=== PATIENT | female | born 1995 | race African-American/Black ===

== ENCOUNTER 2020-08-12 00:27 | Emergency (ER) | payer BC ==
[2020-08-12] MEDS ORDERED: Boostrix 0.5 ML (Tdap) VIAL ONE (01:23)
[2020-08-12] MEDS ORDERED: Ondansetron ODT 8 MG TAB ONE (01:23)
[2020-08-12] MEDS ORDERED: Lidocaine 2% MPF 10 ML AMP (For Epidural Use) ONE (01:33)
[2020-08-12] MEDS ORDERED: Lidocaine 1% PF 5 ML VIAL ONE ×2 (01:33→01:37)
[2020-08-12] MEDS ORDERED: Triple Antibiotic Oint 1 GM Packet ONE (02:38)
[2020-08-12] MEDS ORDERED: Ibuprofen 200 MG TAB ONE (03:05)
--- NOTE | 2020-08-12 08:52 | RAD ---
LEFT HAND 3 VIEWS: Date: 08/12/2020 HISTORY: Injury. Left hand went through glass coffee table. Bleeding controlled. Left hand pain. Concern for f oreign body. FINDINGS/IMPRESSION: No bony abnormality is seen. No radiopaque foreign body is identified. POS: [facility]
== END 2020-08-12 03:13 | disposition home or self-care (01) ==
LOC: ERS 00:27
DX: S61.412A Laceration without foreign body of left hand, initial encounter (principal); W25.XXXA Contact with sharp glass, initial encounter
CPT/HCPCS: 12002; 90715; J2001; Q0162

== ENCOUNTER 2020-12-14 21:57 | Emergency (ER) | payer BC | END 2020-12-14 22:42 | disposition home or self-care (01) | LOC: ERS 21:57 | DX: S93.401A Sprain of unspecified ligament of right ankle, initial encounter (principal); X50.1XXA Overexertion from prolonged static or awkward postures, initial encounter | CPT/HCPCS: 99281 ==

== ENCOUNTER 2021-01-09 21:32 | Emergency (ER) | payer BC ==
[2021-01-10 01:25] LABS: SARS-CoV-2 PCR by NAA DETECTED (NotDetected)
== END 2021-01-09 22:34 | disposition home or self-care (01) ==
LOC: ERS 21:32
DX: U07.1 COVID-19 (principal); E03.9 Hypothyroidism, unspecified; Z79.899 Other long term (current) drug therapy
CPT/HCPCS: 87635; 99283; U0003; U0005

== ENCOUNTER 2021-02-24 12:23 | Emergency (ER) | payer BC ==
[2021-02-24] MEDS ORDERED: Ibuprofen 200 MG TAB ONE ×2 (14:11→14:21)
== END 2021-02-24 14:25 | disposition home or self-care (01) ==
LOC: ERS 12:23
DX: S93.402A Sprain of unspecified ligament of left ankle, initial encounter (principal); W10.9XXA Fall (on) (from) unspecified stairs and steps, initial encounter; Z79.899 Other long term (current) drug therapy; E03.9 Hypothyroidism, unspecified; J45.909 Unspecified asthma, uncomplicated

== ENCOUNTER 2022-12-25 23:37 | Emergency (ER) | payer SELFPAY | END 2022-12-26 00:46 | disposition home or self-care (01) | LOC: ERS 23:37 | DX: J06.9 Acute upper respiratory infection, unspecified (principal); E03.9 Hypothyroidism, unspecified; J45.909 Unspecified asthma, uncomplicated; Z79.899 Other long term (current) drug therapy | CPT/HCPCS: 99283 ==